=== PATIENT | female | born 2000 ===

== ENCOUNTER 2019-04-20 20:57 | Emergency (ER) | payer BC, MEDICAID ==
--- NOTE | 2019-04-20 23:18 | EDM.PDOC ---
ED HPI GENERAL MEDICAL PROBLEM - General Chief Complaint: Headache Stated Complaint: HEADACHE FEVER Time Seen by Provider: 04/20/19 22:35 Source of Information: Reports: Patient, Family () History Limitations: Reports: No Limitations - History of Present Illness INITIAL COMMENTS - FREE TEXT/NARRATIVE: Mrs. Matias is a pleasant 18-year-old woman with a past medical history significant for methamphetamine addiction, and untreated anxiety, depression, bipolar affective disorder, ADHD, borderline personality disorder, and schizophrenia, who states that she delivered a baby by section with an epidural on 03/31/2019. She developed a headache on 04/02/2019 - bifrontal, sharp, and stabbing in character, that has been coming and going since then, although it occurs daily. Typically, it begins about 1 hour after waking and persist until bedtime. Around that same time, she developed a dry cough, which has been coming and going over the past few weeks. She felt nauseated today. She then developed a fever up to 101.5 degrees around 19:00 this evening. She has had body aches. She took 600 mg of ibuprofen at 20:00. The patient states that she is on an antibiotic, whose name she does not recall , but that she takes twice a day, to treat a UTI that was diagnosed last , 04/13/2019, at the walk-in clinic in [place]. He is due to finish the antibiotic tomorrow. She denies having urinary symptoms, although she states that she has had a vaginal itch without vaginal discharge. Otherwise, however, the patient denies recent dyspnea, chest pain, palpitations , vomiting, constipation, diarrhea, abdominal pain, recent weight gain or weight loss, recent bloody bowel movements or black bowel movements, recent joint aches, or rashes. Here in the ED, the patient is found to be mildly tachycardic, with a fever of 100.9 degrees. The patient does not have a PCP. Her Supervisor Electronic Testing is Dr. Margie Neely, in [place]. She has an appointment to see a Psychiatrist in [place] on 05/03/2019. She received an influenza vaccine this season. Treatments AUTOMOTIVE LEASING SALES REPRESENTATIVE: Reports: Other (see below) Other Treatments AUTOMOTIVE LEASING SALES REPRESENTATIVE: motrin Frontal Headache Pain Score (Numeric/FACES): 9 - Related Data Allergies Allergy/AdvReac Type Severity Reaction Status Date / Time No Known Allergies Allergy Verified 03/28/19 09:09 STUDIO OWNER Home Meds: Home Meds Vit37/Iron/Folic Acid [Prenata] 1 each PO DAILY 08/22/18 [History] Acetaminophen [Tylenol Extra Strength] 1,000 mg PO Q6H PRN 03/17/19 [History] Oseltamivir [Tamiflu] 1 cap PO Q12H #9 cap 04/21/19 [Rx] Past Medical History Cardiovascular History: Reports: Blood Clots/VTE/DVT Respiratory History: Reports: PE BUSINESS PROCESS REPRESENTATIVE History: Reports: Spontaneous (x 1) : 2 Para: 1 Musculoskeletal History: Reports: Fracture (right wrist, ribs, L-spine, pelvis, left hip, right foot) Psychiatric History: Reports: ADHD (untreated), Addiction (methamphetamine), Anxiety (untreated), Bipolar (untreated), Depression (untreated), Suicide Attempt, Other (See Below) (Borderline personality disorder, untreated) Endocrine/Metabolic History: Reports: Obesity/BMI 30+ Hematologic History: Reports: Blood Transfusion(s) - Past Surgical History HEENT Surgical History: Reports: Oral Surgery (wisdom teeth extraction) Cardiovascular Surgical History: Reports: Vascular Surgery (IVC filter, subsequently removed) GI Surgical History: Reports: Appendectomy Female Surgical History: Reports: Section (x 1) Neurological Surgical History: Reports: Sacral Spine (transverse oblique screws superior sacrum) Musculoskeletal Surgical History: Reports: ORIF (right wrist), Other (See Below ) (Pubic ramus and left hip repair) Social & Family History - Family History Family Medical History: Noncontributory - Tobacco Use Smoking Status *Q: Former Smoker Years of Tobacco use: 6 Packs/Tins Daily: 1 Month/Year Tobacco Last Used: Quit Jun 2018 - Caffeine Use Caffeine Use: Reports: Soda, Tea - Alcohol Use Alcohol Use History: No - Recreational Drug Use Recreational Drug Use: Yes Drug Use in Last 12 Months: Yes Recreational Drug Type: Reports: Heroin (snorted twice, last in Apr 2018), Marijuana/Hashish (last smoked Jun 2018), Methamphetamine (last ate, snorted, smoked, injected 06/06/2018), Other (see below) (Abused opioids in the past) - Living Situation & Occupation Living situation: Reports: , with Spouse, with Family (1 ), Other ( with friends) Occupation: Unemployed ED ROS GENERAL - Review of Systems Review Of Systems: Comprehensive ROS is negative, except as noted in HPI. ED EXAM, GENERAL - Physical Exam Exam: See Below Exam Limited By: No Limitations General Appearance: Alert, WD/WN, No Apparent Distress Eye Exam: Bilateral Eye: EOMI, Normal Inspection Ears: Normal External Exam, Normal Canal, Hearing Grossly Normal, Normal TMs Nose: Normal Inspection, Normal Mucosa, No Blood Throat/Mouth: Normal Inspection, Normal Lips, Normal Teeth, Normal Gums, Normal Oropharynx, Normal Voice, No Airway Compromise Head: Atraumatic, Normocephalic Neck: Normal Inspection, Supple, Non-Tender, Full Range of Motion. No: Lymphadenopathy (L), Lymphadenopathy (R) Respiratory/Chest: No Respiratory Distress, Lungs Clear, Normal Breath Sounds, No Accessory Muscle Use. No: Decreased Breath Sounds, Crackles, Rhonchi, Wheezing, Stridor, Prolonged Expiration Cardiovascular: Normal Peripheral Pulses, Regular Rate, Rhythm, No Edema, No Gallop, No JVD, No Murmur, No Rub Peripheral Pulses: 4+: Radial (L), Radial (R) GI/Abdominal: Normal Bowel Sounds, Soft, Non-Tender, No Organomegaly, No Distention, No Abnormal Bruit, No Mass (Female) Exam: Deferred Rectal (Female) Exam: Deferred Back Exam: Normal Inspection, Full Range of Motion, NT Extremities: Normal Inspection, Normal Range of Motion, No Pedal Edema, Normal Capillary Refill Neurological: Alert, Oriented, Normal Cognition, No Motor/Sensory Deficits Psychiatric: Normal Affect Skin Exam: Warm, Dry, Intact, Normal Color, No Rash Course - Vital Signs Last Recorded V/S: Last Vital Signs Temp 38.3 C H 04/20/19 21:11 Pulse 118 H 04/20/19 21:11 Resp 20 04/20/19 21:11 BP 113/56 L 04/20/19 21:11 Pulse Ox 97 04/20/19 21:11 - Orders/Labs/Meds Labs: Laboratory Tests 04/20/19 04/20/19 04/20/19 Range/Units 23:15 23:21 23:21 WBC 24.44 H (3.98-10.04) K/mm3 RBC 4.56 (3.98-5.22) M/mm3 Hgb 13.7 (11.2-15.7) gm/dl Hct 41.0 (34.1-44.9) % MCV 89.9 (79.4-94.8) fl MCH 30.0 (25.6-32.2) pg MCHC 33.4 (32.2-35.5) g/dl RDW Std Deviation 43.0 (36.4-46.3) fL Plt Count 359 (182-369) K/mm3 MPV 9.2 L (9.4-12.3) fl Neutrophils % (Manual) 81 H (40-60) % Band Neutrophils % 0 (0-10) % Lymphocytes % (Manual) 13 L (20-40) % Atypical Lymphs % 0 % Monocytes % (Manual) 5 (2-10) % Eosinophils % (Manual) 0 L (0.7-5.8) % Basophils % (Manual) 1 (0.1-1.2) Toxic Granulation 1+ slight Platelet Estimate Adequate RBC Morph Comment Normal PT 10.4 (9.7-12.0) SECONDS INR 0.95 Sodium (136-145) mEq/L Potassium (3.5-5.1) mEq/L Chloride (98-107) mEq/L Carbon Dioxide (21-32) mEq/L Anion Gap (5-15) BUN (7-18) mg/dL Creatinine (0.55-1.02) mg/dL Est Cr Clr Drug Dosing mL/min Estimated GFR (MDRD) (>60) mL/min BUN/Creatinine Ratio (14-18) Glucose (74-106) mg/dL Lactic Acid (0.4-2.0) mmol/L Calcium (8.5-10.1) mg/dL Total Bilirubin (0.2-1.0) mg/dL AST (15-37) U/L ALT (14-59) U/L Alkaline Phosphatase (46-116) U/L Total Protein (6.4-8.2) g/dl Albumin (3.4-5.0) g/dl Globulin gm/dL Albumin/Globulin Ratio (1-2) Urine Color Light yellow (Yellow) Urine Appearance Clear (Clear) Urine pH 6.0 (5.0-8.0) Ur Specific Pratts 1.020 (1.005-1.030) Urine Protein Negative (Negative) Urine Glucose (UA) Negative (Negative) Urine Ketones Negative (Negative) Urine Occult Blood 2+ H (Negative) Urine Nitrite Negative (Negative) Urine Bilirubin Negative (Negative) Urine Urobilinogen 0.2 (0.2-1.0) Ur Leukocyte Esterase Negative (Negative) Urine RBC 5-10 H (0-5) /hpf Urine WBC Not seen (0-5) /hpf Ur Squamous Epith Cells Not seen (0-5) /hpf Urine Bacteria Rare (FEW) /hpf Urine Mucus Not seen (FEW) /hpf 04/20/19 04/20/19 Range/Units 23:21 23:43 WBC (3.98-10.04) K/mm3 RBC (3.98-5.22) M/mm3 Hgb (11.2-15.7) gm/dl Hct (34.1-44.9) % MCV (79.4-94.8) fl MCH (25.6-32.2) pg MCHC (32.2-35.5) g/dl RDW Std Deviation (36.4-46.3) fL Plt Count (182-369) K/mm3 MPV (9.4-12.3) fl Neutrophils % (Manual) (40-60) % Band Neutrophils % (0-10) % Lymphocytes % (Manual) (20-40) % Atypical Lymphs % % Monocytes % (Manual) (2-10) % Eosinophils % (Manual) (0.7-5.8) % Basophils % (Manual) (0.1-1.2) Toxic Granulation Platelet Estimate RBC Morph Comment PT (9.7-12.0) SECONDS INR Sodium 137 (136-145) mEq/L Potassium 3.7 (3.5-5.1) mEq/L Chloride 101 (98-107) mEq/L Carbon Dioxide 22 (21-32) mEq/L Anion Gap 17.7 H (5-15) BUN 20 H (7-18) mg/dL Creatinine 1.2 H (0.55-1.02) mg/dL Est Cr Clr Drug Dosing 61.86 mL/min Estimated GFR (MDRD) 57 (>60) mL/min BUN/Creatinine Ratio 16.7 (14-18) Glucose 100 (74-106) mg/dL Lactic Acid 1.8 (0.4-2.0) mmol/L Calcium 9.8 (8.5-10.1) mg/dL Total Bilirubin 0.3 (0.2-1.0) mg/dL AST 13 L (15-37) U/L ALT 24 (14-59) U/L Alkaline Phosphatase 130 H (46-116) U/L Total Protein 7.9 (6.4-8.2) g/dl Albumin 3.9 (3.4-5.0) g/dl Globulin 4.0 gm/dL Albumin/Globulin Ratio 1.0 (1-2) Urine Color (Yellow) Urine Appearance (Clear) Urine pH (5.0-8.0) Ur Specific Pratts (1.005-1.030) Urine Protein (Negative) Urine Glucose (UA) (Negative) Urine Ketones (Negative) Urine Occult Blood (Negative) Urine Nitrite (Negative) Urine Bilirubin (Negative) Urine Urobilinogen (0.2-1.0) Ur Leukocyte Esterase (Negative) Urine RBC (0-5) /hpf Urine WBC (0-5) /hpf Ur Squamous Epith Cells (0-5) /hpf Urine Bacteria (FEW) /hpf Urine Mucus (FEW) /hpf Meds: Medications Discontinued Medications Generic Name Dose Route Start Last Admin Trade Name Freq PRN Reason Stop Dose Admin Oseltamivir Phosphate 75 mg 04/21/19 01:46 04/21/19 01:51 Tamiflu PO 04/21/19 01:47 75 mg ONETIME ONE Administration - Re-Assessments/Exams Free Text/Narrative Re-Assessment/Exam: 04/20/19 23:12 My initial concern when reading the triage note was that the patient's headache could be a spinal headache related to an epidural leak, however, the patient's history is not consistent with that. Next, I was concerned that it could be related to a spinal fluid infection, i.e., meningitis, however, that does not appear to be the case, either. The patient has a history of a dry cough on and off for the past 3 weeks, and a fever that developed tonight. She is just finishing a one-week course of an unknown antibiotic that she has been taking twice a day to treat a UTI, however , it is possible that the organism responsible for her UTI is resistant to the antibiotic prescribed, causing her fever, therefore I have ordered a urinalysis to evaluate. In addition, because of the patient's fever, I ordered a CBC and influenza swab. Because of her history of cough, I ordered a chest x-ray, and because she presented with tachycardia and a fever, in order to meet sepsis evaluation guidelines, I ordered a lactic acid level and an INR. 04/21/19 00:07 2-view chest radiograph reviewed. The cardiac silhouette is within normal limits. No pulmonary vascular congestion. No pleural effusions. No focal infiltrate. No pneumothorax. Brassiere clips and strap tighteners incidentally noted. Formal read per the Radiologist pending. 04/21/19 01:35 The patient's CBC is remarkable for WBC count is significantly elevated at 24.44 , but with 0% bandemia. The remainder of her CBC is unremarkable. Her CMP is remarkable for a BUN/Cr elevated at 20/1.2. Her alkaline phosphatase is mildly elevated at 130, with the remainder of her CMP being unremarkable. Her lactic acid level is within normal limits at 1.8. Her INR is within normal limits. Her urinalysis is remarkable for 2+ occult blood, and 5-10 RBCs, but is otherwise unremarkable.. Her influenza swab returned negative. 04/21/19 01:46 Test results discussed with the patient and her . With respect to the blood in her urine, she mentioned that she is still having some vaginal bleeding following delivery. The patient appears to have a viral illness, which , despite her negative influenza swab, could be influenza. I offered to start the patient on Tamiflu, since her fever, body aches, and nausea started less than 48 hours ago, although her cough has been going on for about 3 weeks. The patient agreed. She will therefore be started on Tamiflu here, and I will submit a prescription to complete a 5-day course. Departure - Departure Time of Disposition: 01:47 Disposition: Home, Self-Care 01 Condition: Good Clinical Impression: Febrile illness, Viral illness - Discharge Information *PRESCRIPTION DRUG MONITORING PROGRAM REVIEWED*: Not Applicable *COPY OF PRESCRIPTION DRUG MONITORING REPORT IN PATIENT ASHLYN: Not Applicable Prescriptions: Oseltamivir [Tamiflu] 1 cap PO Q12H #9 cap Instructions: Viral Illness, Adult, Fever, Adult, [id number] Referrals: Margie Neely MD [Primary Care Provider] - Forms: ED Department Discharge Additional Instructions: You were seen in the emergency room for a recurrent headache since 04/02/2019, a cough on and off for the past 3 weeks, a fever tonight, along with nausea and body aches today. Workup in the ER included blood work, a urinalysis, a chest x-ray, and an influenza swab. Your workup was remarkable for a WBC count significantly elevated at 24.44, but with none of the types of white blood cells that fight bacterial infections. Your chemistry panel states that you may be slightly dry. The remainder of your workup was unremarkable. Based on your history, physical exam, and ER test, you appear to be fighting a viral illness. Despite your negative influenza swab, it is still possible that you have influenza. You have been started on the anti-influenza medicine Tamiflu, and a prescription for Tamiflu has been sent to the [facility] located in the [place] store. Take one tablet of Tamiflu every 12 hours, starting this afternoon/evening, 04/21/2019, as prescribed. Scanning adequately hydrated. Gatorade or Powerade are best, however, so long as you do not have diarrhea, any fluid will do. Chicken noodle soup with saltine crackers is an excellent choice. If any other problems, please do not hesitate to return to the ER. Sepsis Event Note - Evaluation Sepsis Screening Result: No Definite Risk - Focused Exam Date Exam was Performed: 04/26/19 Time Exam was Performed: 11:04
[2019-04-21] MEDS ORDERED: Oseltamivir 75 MG Cap PO ONE (01:46)
--- NOTE | 2019-04-21 08:33 | CR ---
Chest: Two views of the chest were obtained. Comparison: Previous chest x-ray of 09/04/14. Heart size and mediastinum are normal. Lungs are clear. Bony structures are unremarkable. Impression: 1. Nothing acute is appreciated on two-view chest x-ray. Diagnostic code #1 This report was dictated in [place] Standard Time
== END 2019-04-21 02:00 | disposition home or self-care (01) ==
LOC: JD.ED 20:57 → SUPCPDRO 20:57 → MERGE 20:57 → JD.ED 04-21 02:00
DX: B34.9 Viral infection, unspecified (principal); Z87.891 Personal history of nicotine dependence
CPT/HCPCS: 36415; 71046; 80053; 81001; 83605; 85007; 85027; 85610; 87804; 99284; A9270; 99283